=== PATIENT | male | born 2000 | race Caucasian/White ===

== ENCOUNTER 2020-05-30 00:47 | Emergency (ER) | payer OTHER ==
[~2020-05-30] VITALS: Ht 180.3 cm; Wt 63.5 kg
--- NOTE | 2020-05-30 01:09 | ED Lower Extremity ---
General Chief Complaint: Lower Extremity Stated Complaint: RT FOOT INJURY SKATEBOARDING Source: patient Exam Limitations: no limitations History of Present Illness Date Seen by Provider: May 30, 2020 Time Seen by Provider: 00:58 Initial Comments Patient presents ER by private conveyance from home with chief complaint that earlier in the afternoon yesterday he rolled his ankle medially on the right side while skateboarding. Caused some significant pain and swelling and he wrapped it and iced it and took some Tylenol 2 tablets around 2300. No history of injury to this ankle. No surgical or medical history. He does not take medicines routinely. He was unable to get to sleep because of the pain and swelling. Allergies and Home Medications Allergies Coded Allergies: No Known Drug Allergies (Unverified , 05/30/20) Patient Home Medication List Home Medication List Reviewed: Yes Review of Systems Constitutional: No chills, No diaphoresis EENTM: No ear discharge, No ear pain Respiratory: No cough, No short of breath Cardiovascular: No chest pain, No edema Gastrointestinal: No abdominal pain, No nausea Genitourinary: No discharge, No dysuria Musculoskeletal: No back pain, No joint pain All Other Systems Reviewed Negative Unless Noted: Yes Past Jxebdid-Mmswfn-Xmohbv Hx Patient Social History Alcohol Use: Denies Use Smoking Status: Never a Smoker Physical Exam Vital Signs Vital Signs - First Documented 05/30/20 01:05 Temp 36.6 Pulse 80 Resp 18 B/P (MAP) 136/98 (111) Pulse Ox 99 O2 Delivery Room Air Capillary Refill : Height, Weight, BMI Height: '" Weight: lbs. oz. kg; BMI Method: General Appearance: WD/WN, no apparent distress HEENT: PERRL/EOMI, pharynx normal Cardiovascular: normal peripheral pulses, regular rate, rhythm Respiratory: no respiratory distress, no accessory muscle use Legs: bilateral leg non-tender, bilateral leg normal inspection, bilateral leg normal range of motion, bilateral leg no evidence of injury Ankles: bilateral ankle non-tender, bilateral ankle normal inspection, bilateral ankle normal range of motion, bilateral ankle no evidence of injury Feet: left foot non-tender, left foot normal inspection; bilateral foot normal range of motion; left foot no evidence of injury; right foot bone tenderness (Fourth and fifth metatarsal), right foot ecchymosis (Dorsum lateral right foot), right foot pain, right foot soft tissue tenderness, right foot swelling (Dorsum of the right foot) Neurologic/Psychiatric: no motor/sensory deficits, alert, normal mood/affect, oriented x 3 Progress/Results/Core Measures Results/Orders My Orders Orders - JOSIE IVERSON Foot, Right, 3 View (05/30/20 01:04) Ketorolac Injection (Toradol Injection) (05/30/20 01:15) Medications Given in ED Current Medications Medications Dose Ordered Sig/Eris Route Start Time Stop Time Status Last Admin Dose Admin Ketorolac Tromethamine 60 mg ONCE ONCE IM 05/30/20 01:15 05/30/20 01:16 DC 05/30/20 01:35 60 MG Vital Signs/I&O 05/30/20 01:05 Temp 36.6 Pulse 80 Resp 18 B/P (MAP) 136/98 (111) Pulse Ox 99 O2 Delivery Room Air Progress Progress Note #1: Time: 01:08 Progress Note Toradol and 3 view right foot. Ice Progress Note #2: Time: 02:18 Progress Note Plan to put him in a short leg splint and have him follow-up outpatient with podiatry. Toradol was insufficient for pain relief. 2 tablets of hydrocodone. Diagnostic Imaging Diagonstic Imaging: Xray Plain Films/CT/US/NM/MRI: other (Right foot 3 view) Comments Minimally displaced avulsion fracture involving the articular surface of the tarsal navicular right foot superior portion. Reviewed: Reviewed by Me Consults : Consulting Physician: PREM MCGHEE MD Consults Notes He recommends follow-up 2 to 3 days with podiatry such as Dr. Prince. Short leg splint. Departure Impression Primary Impression: Closed right tarsal navicular fracture Qualified Codes: S92.251A - Displaced fracture of navicular [scaphoid] of right foot, initial encounter for closed fracture Disposition: 01 HOME, SELF-CARE Condition: Stable Departure-Patient Inst. Decision time for Depature: 02:16 Referrals: NO,LOCAL PHYSICIAN (PCP) Primary Care Physician BENTON PRINCE DPM Patient Instructions: Foot Fracture (DC) Add. Discharge Instructions: Keep the foot elevated above the level of your heart when possible. Ice the foot for 20 minutes on every 2 hours for the first 2 to 3 days as necessary for swelling and pain. Wrap the foot in a neoprene sleeve or elastic bandage such as an Jomar wrap for compression. Use crutches as necessary for the first week to stay off your foot. Do not bear any weight on the foot until released by the surgeon. Tylenol/acetaminophen 1000 mg every 8 hours as necessary for pain. Ibuprofen/Motrin 800 mg every 8 hours as necessary for pain. Follow-up with Dr. Prince or the materials tech of your choice in 2 to 3 days by calling for an appointment. All discharge instructions reviewed with patient and/or family. Voiced understanding. Scripts Hydrocodone/Acetaminophen (Hydrocodone-Acetamin 5-325 mg) 1 Each Tablet 1 TAB PO Q4H PRN for PAIN-MODERATE (5-7), #15 TAB 0 Refills Prov: JOSIE IVERSON 05/30/20 Work/School Note: Work Release Form Date Seen in the Emergency Department: May 30, 2020 Return to Work: Jun 01, 2020 Restrictions: Need Release from Doctor Other Restrictions Listed Below: No weightbearing right foot. Keep the right foot elevated when possible. Restrictions: Ice the right foot every 2 hours while awake for the first 2 days. Copy Copies To 1: BENTON PRINCE DPM, TITUS J May 30, 2020 01:09
[2020-05-30] MEDS ORDERED: KETOROLAC 60 MG/2 ML VIAL IM ONE (01:15)
[2020-05-30] MEDS ORDERED: ACHD5005 PO (02:22)
[2020-05-30] MEDS ORDERED: HYDROcodone/APAP 5 MG/325 MG (LORTAB) TAB PO ONE (02:30)
[2020-05-30 02:36] VITALS: BP 136/98
--- NOTE | 2020-05-30 07:04 | Diagnostic Imaging Report ---
INDICATION: Right foot pain and swelling. COMPARISON: None. FINDINGS: 3 radiographic views of the right foot were obtained. There is abrupt cortical irregularity involving the dorsum of the navicular only seen on the lateral view. There does appear to be slightly displaced small fracture fragment with extension of fracture line into the talonavicular joint space. Joint spaces are otherwise intact. No other acute osseous abnormalities are seen. No unexpected radiopaque foreign bodies are identified. IMPRESSION: 1. Slightly displaced acute appearing navicular fracture. Further characterization with CT may be of benefit. Report was faxed and called to Dr. Choe [facility] ER by erica at 7:00am. Dictated by: Dictated on workstation # [id number]
== END 2020-05-30 02:36 | disposition home or self-care (01) ==
LOC: ER 00:53
DX: S92.251A Displaced fracture of navicular [scaphoid] of right foot, initial encounter for closed fracture (principal); I10 Essential (primary) hypertension; X50.0XXA Overexertion from strenuous movement or load, initial encounter; Y93.51 Activity, roller skating (inline) and skateboarding
CPT/HCPCS: 29515; 73630

== ENCOUNTER 2020-06-05 22:22 | Emergency (ER) | payer OTHER ==
[~2020-06-05] VITALS: Ht 177 cm; Wt 63.5 kg
[~2020-06-05 22:22] MED LIST: ACHD5005 PO
[2020-06-05 22:50] VITALS: BP 135/89
--- NOTE | 2020-06-05 23:29 | ED Lower Extremity ---
General Chief Complaint: Lower Extremity Stated Complaint: RIGHT FOOT INJ Nursing Triage Note: Patient ambulatory to ER on one crutch with c/o right foot pain. Patient states he was seen here last week and told he had a fracture to his foot. He states he was unable to follow up with anyone and is here today "because nobody will see me or do anything about it and i just want a cast put on it so I can go to work". Nursing Sepsis Screen: No Definite Risk Source: patient Exam Limitations: no limitations History of Present Illness Date Seen by Provider: Jun 05, 2020 Time Seen by Provider: 23:00 Initial Comments Patient presents ER by private conveyance with chief complaint he needs some help managing his right foot fracture of the navicular. It was fractured on the sixth in a skateboarding accident. He says he went to the acquisition editor and they did not accept janie care. He tried several other orthopedic surgeons and could not get in anywhere so he came back here. He said the splint has fallen apart and so he is just been using an Jomar wrap and the crutches and nonweightbearing. He had a little bit of swelling but the pain is marginal and only occasionally spikes up for a few seconds. He is managed it with Tylenol and ibuprofen. He says he needs to get back to work. He works in a warehouse. Allergies and Home Medications Allergies Coded Allergies: No Known Drug Allergies (Unverified , 05/30/20) Home Medications Hydrocodone/Acetaminophen 1 Each Tablet, 1 TAB PO Q4H PRN for PAIN-MODERATE (5- 7) Prescribed by: JOSIE IVERSON on 05/30/20 0223 Patient Home Medication List Home Medication List Reviewed: Yes Review of Systems Constitutional: No chills, No diaphoresis EENTM: No hearing loss, No ear pain Respiratory: No cough, No short of breath Cardiovascular: No Hx of Intervention, No palpitations Gastrointestinal: No nausea, No vomiting All Other Systems Reviewed Negative Unless Noted: Yes Past Yebijfv-Jyzcyr-Qdbvys Hx Patient Social History Alcohol Use: Denies Use Smoking Status: Never a Smoker 2nd Hand Smoke Exposure: No Recent Infectious Disease Expo: No Recent Hopitalizations: No Seasonal Allergies Seasonal Allergies: No Past Medical History Surgeries: No Respiratory: No Cardiac: No Neurological: No Genitourinary: No Gastrointestinal: No Musculoskeletal: No Endocrine: No HEENT: No Cancer: No Psychosocial: No Integumentary: No Blood Disorders: No Physical Exam Vital Signs Vital Signs - First Documented 06/05/20 22:50 Temp 36.5 Pulse 63 Resp 14 B/P (MAP) 135/89 (104) Pulse Ox 99 O2 Delivery Room Air Capillary Refill : Less Than 3 Seconds Height, Weight, BMI Height: '" Weight: lbs. oz. kg; 20.00 BMI Method: General Appearance: WD/WN, no apparent distress HEENT: PERRL/EOMI, pharynx normal Cardiovascular: normal peripheral pulses, regular rate, rhythm Respiratory: lungs clear, normal breath sounds, no respiratory distress, no accessory muscle use Ankles: bilateral ankle non-tender, bilateral ankle normal inspection, bilateral ankle normal range of motion, bilateral ankle no evidence of injury Feet: right foot pain (Mild), right foot soft tissue tenderness, right foot swelling (Mild) Neurologic/Tendon: normal sensation, normal motor functions, normal tendon functions, responds to pain, no evidence tendon injury Neurologic/Psychiatric: alert, oriented x 3 Skin: warm/dry, ecchymosis Progress/Results/Core Measures Results/Orders Vital Signs/I&O 06/05/20 22:50 Temp 36.5 Pulse 63 Resp 14 B/P (MAP) 135/89 (104) Pulse Ox 99 O2 Delivery Room Air Blood Pressure Mean: 104 Progress Progress Note : Time: 23:24 Progress Note We will convert him to a boot and keep him toe-touch only for the next week. Weightbearing as tolerated next week with crutches and the fourth week will try out of the boot. Ideally we will try and get him in with a primary care doctor to help him manage his navicular fracture. We have encouraged him to follow-up with [facility]. Departure Impression Primary Impression: Closed right tarsal navicular fracture Qualified Codes: S92.254D - Nondisplaced fracture of navicular [scaphoid] of right foot, subsequent encounter for fracture with routine healing Disposition: 01 HOME, SELF-CARE Condition: Stable Departure-Patient Inst. Decision time for Depature: 23:25 Referrals: [facility] [place] NO,LOCAL PHYSICIAN (PCP) Primary Care Physician Patient Instructions: Foot Fracture (DC) Add. Discharge Instructions: Unfortunately I lack the expertise to direct you whether or not you need surgery for your foot. However I will recommend that you remain toe-touch weightbearing in the boot using crutches for the next week. For the third week of your fracture you may start weightbearing as tolerated and use the crutches as necessary. You need to follow-up with a primary care doctor at [facility] to help guide you through the healing process. Tylenol 1000 mg every 8 hours as necessary for pain. Ibuprofen 800 mg every 8 hours as necessary for pain. Elevate the foot above the level of your heart to reduce swelling and pain as necessary. Jomar wrap or other similar elastic bandage as necessary for compression to reduce pain and swelling. All discharge instructions reviewed with patient and/or family. Voiced understanding. Work/School Note: Work Release Form Date Seen in the Emergency Department: Jun 05, 2020 Return to Work: Jun 06, 2020 Restrictions: Need Release from Doctor Other Restrictions Listed Below: Toe-touch weightbearing with the boot on and crutches until 06/13/2020. Restrictions: Weightbearing as tolerated 06/14/2020 until 06/20/2020. Copy Copies To 1: RENEE ANDERSON TITUS J Jun 05, 2020 23:29
== END 2020-06-05 23:40 | disposition home or self-care (01) ==
LOC: EDUNIT# 22:22 → ER 22:25
DX: S92.251A Displaced fracture of navicular [scaphoid] of right foot, initial encounter for closed fracture (principal); I10 Essential (primary) hypertension; V00.131A Fall from skateboard, initial encounter
CPT/HCPCS: 99282